=== PATIENT | male | born 1945 | race Caucasian/White ===

== ENCOUNTER 2019-05-26 14:44 | Emergency (ER) | payer MEDICARE ==
[~2019-05-26] VITALS: Ht 167.6 cm; Wt 68.2 kg
[2019-05-26] MEDS ORDERED: CHOL400T56 PO (14:50)
[2019-05-26] MEDS ORDERED: BLOOD PRESSURE PO (14:50)
[2019-05-26] MEDS ORDERED: VITA1TAB22 PO (14:50)
[2019-05-26] MEDS ORDERED: DEPRESSION MED PO (14:50)
[2019-05-26 16:27] VITALS: BP 116/83
[2019-05-26] MEDS ORDERED: LIDOCAINE 5% TRANSDERMAL PATCH TD ONE (17:00)
== END 2019-05-26 17:35 | disposition home or self-care (01) ==
LOC: EMS 14:48
DX: M54.41 Lumbago with sciatica, right side (principal); F32.9 Major depressive disorder, single episode, unspecified; I10 Essential (primary) hypertension; Z98.890 Other specified postprocedural states; Z79.899 Other long term (current) drug therapy; Z88.0 Allergy status to penicillin